=== PATIENT | male | born 1960 | race Caucasian/White ===

== ENCOUNTER → 2019-10-10 | Outpatient (CLI) | payer OTHER ==
--- NOTE | 2019-10-10 21:52 | MR ---
EXAMINATION TYPE: MR shoulder RT wo con DATE OF EXAM: 10/10/2019 COMPARISON: Outside shoulder x-ray September 27, 2019. HISTORY: Right shoulder pain TECHNIQUE: Multiplanar, multisequence imaging of the right shoulder is performed without contrast. FINDINGS: Rotator Cuff: Some increased signal in the distal supraspinatus and infraspinatus tendons. Focal tear measuring 10 mm transversely coronal image 16 involving the posterior fibers of the supraspinatus te ndon. Some adjacent fluid into the subdeltoid/subacromial bursa is seen . Corresponding tear measures 11 mm AP diameter sagittal image 20. Infraspinatus tendon is intact. Subscapularis tendon is intact. Rotator cuff muscle bulk is preserved. Acromioclavicular Joint: Moderate narrowing and capsular hypertrophy. The distal acromion morphology is downsloping with loss of underlying fat plane. Glenohumeral Joint: Moderate narrowing with small effusion. No significant spurring. Labrum: The superior labrum shows irregular increased signal suspicious for degenerative tear coronal image 16. Biceps Tendon: The long head of biceps is in normal location within bicipital groove. Bone marrow signal: Subchondral cystic change superior humeral head is present with additional scatte red smaller foci humeral head level noted. Other: No additional significant abnormality is appreciated. IMPRESSION: 1. 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 2. Moderate degenerative changes as detailed above. Underlying impingement from tight II downsloping acromion suspected.
== END | disposition home or self-care (01) ==
LOC: RADMRIMAIN 06:40
PROVIDERS: ATTEND Orthopaedic Surgery
DX: M75.101 Unspecified rotator cuff tear or rupture of right shoulder, not specified as traumatic (principal); M19.011 Primary osteoarthritis, right shoulder; M77.9 Enthesopathy, unspecified